=== PATIENT | male | born 1995 | race Caucasian/White ===

== ENCOUNTER 2017-09-03 09:13 | Emergency (ER) | payer MEDICAID ==
[~2017-09-03] VITALS: Ht 175.3 cm; Wt 80.0 kg
[~2017-09-03 09:13] MED LIST: AMOX500T PO; PAXI10TA PO
[2017-09-03 09:17] VITALS: BP 155/73; PULSE 82; RESP 22; TEMP 97.5; O2SAT 100
[2017-09-03] MEDS ORDERED: busPIRone HCL 10 MG TAB PO ONE (09:30)
[2017-09-03] MEDS ORDERED: hydrOXYzine PAMOATE 25 MG CAP PO ONE (09:30)
--- NOTE | 2017-09-03 09:31 | PD ---
HPI Chief Complaint: Anxiety Time Seen by Provider: 09:24 Travel History International Travel<30 days: No Contact w/Intl Traveler<30days: No Traveled to known affect area: No History of Present Illness HPI 21-year-old male with history of anxiety, presents emergency department with worsening symptoms over the past 4 days. Patient denies any specific causative agent. He denies taking any medications which would have increased his symptoms. He was recently seen by his primary and had his Paxil increased from 10 mg to 20 mg 3 days ago. Patient has used Ativan in the past as well as occasionally BuSpar. Patient states no drug use or stimulant abuse. He has no pain, headache, or other constitutional symptoms. He states no feelings of suicide or homicidal. He is allergic to antihistamines. PFSH Past Medical History Anxiety: Yes Developmental Delay: No Diminished Hearing: No Immunizations Current: Yes Social History Alcohol Use: No Tobacco Use: No Substance Use: No Allergies-Medications (Allergen,Severity, Reaction): Uncoded Allergies: ANTIHISTAMINE (Allergy, Severe, URINARY RETENTION, 08/15/14) Reported Meds & Prescriptions Reported Meds & Active Scripts Active Reported Amoxil (Amoxicillin) 500 Mg Cap 500 Mg PO TID Paxil (Paroxetine HCl) 10 Mg Tab 10 Mg PO DAILY Review of Systems Except as stated in HPI: all other systems reviewed are Neg General / Constitutional: No: Fever Eyes: No: Visual changes HENT: No: Headaches Cardiovascular: No: Chest Pain or Discomfort Respiratory: No: Shortness of Breath Gastrointestinal: No: Abdominal Pain Genitourinary: No: Dysuria Musculoskeletal: No: Pain Skin: No Rash Neurologic: No: Weakness Psychiatric: Positive: Anxiety, No: Depression, Suicidal Ideations, Disorder of Thought, Mood Disorder, Substance Abuse, Homicidal Ideation Endocrine: No: Polydipsia Hematologic/Lymphatic: No: Easy Bruising Physical Exam Narrative GENERAL: Patient appears anxious but otherwise in no acute distress SKIN: Warm and dry. Normal color. Normal turgor. HEAD: Atraumatic. Normocephalic. EYES: Pupils equal and round. No scleral icterus. No injection or drainage. ENT: No nasal bleeding or discharge. Mucous membranes pink and moist. Pharynx is clear. Airways patent. NECK: Trachea midline. Supple and nontender without palpable thyroid. CARDIOVASCULAR: Regular rate and rhythm. RESPIRATORY: No accessory muscle use. Clear to auscultation. Breath sounds equal bilaterally. GASTROINTESTINAL: Abdomen soft, non-tender, nondistended. Hepatic and splenic margins not palpable. MUSCULOSKELETAL: Extremities without clubbing, cyanosis, or edema. No obvious deformities. NEUROLOGICAL: Awake and alert. No obvious cranial nerve deficits. Motor grossly within normal limits. Five out of 5 muscle strength in the arms and legs. Normal speech. PSYCHIATRIC: Appropriate mood and affect; insight and judgment normal. Data Data Last Documented VS Vital Signs Date Time Temp Pulse Resp B/P (MAP) Pulse Ox O2 Delivery O2 Flow Rate FiO2 09/03/17 09:17 97.5 82 22 155/73 (100) 100 Orders Orders Buspirone (Buspar) (09/03/17 09:30) Hydroxyzine Pamoate (Vistaril) (09/03/17 09:30) [facility] Medical Decision Making Medical Screen Exam Complete: Yes Emergency Medical Condition: Yes Differential Diagnosis Anxiety. Mild depression. Panic attacks. Narrative Course Patient is medically stable at time of exam. Patient is given BuSpar 10 mg p.o. now. Patient is given Vistaril 25 mg p.o. now. Further medical workup is not felt warranted at this time. Patient discharged with BuSpar 10 mg twice daily #60. Patient given Vistaril 25 mg 1 every 6 hours as needed anxiety #40. Patient to follow-up with his primary care physician/psychiatrist for further treatment as needed. Patient can return to emergency department if symptoms worsen as needed Diagnosis Primary Impression: Anxiety Referrals: Primary Care Physician Psychiatrist Patient Instructions: Anxiety (ED), General Instructions Additional Instructions: Patient is given BuSpar 10 mg p.o. now. Patient is given Vistaril 25 mg p.o. now. Further medical workup is not felt warranted at this time. Patient discharged with BuSpar 10 mg twice daily #60. Patient given Vistaril 25 mg 1 every 6 hours as needed anxiety #40. Patient to follow-up with his primary care physician/psychiatrist for further treatment as needed. Patient can return to emergency department if symptoms worsen as needed Med/Other Pt SpecificInfo: Prescription(s) given Disposition: DISCHARGE HOME Condition: Stable Rafa Whitman Sep 03, 2017 09:31
[2017-09-03] MEDS ORDERED: PAXI10TA8 PO (09:42)
[2017-09-03] MEDS ORDERED: LORA-392 PO (09:42)
[2017-09-03] MEDS ORDERED: BUSP10TA PO (10:20)
[2017-09-03] MEDS ORDERED: VIST25CA PO (10:20)
== END 2017-09-03 10:58 | disposition home or self-care (01) ==
LOC: NEPD 09:13
DX: F41.9 Anxiety disorder, unspecified (principal); Z88.8 Allergy status to other drugs, medicaments and biological substances; Z79.899 Other long term (current) drug therapy
CPT/HCPCS: 99283; Q0177